=== PATIENT | female | born 1980 | race Caucasian/White ===

== ENCOUNTER → 2019-12-25 10:40 | Outpatient (CLI) | payer OTHER, SELFPAY ==
[2019-12-25 11:47] LABS: Add Manual Diff / Slide Review NO; Basophils Absolute Auto 0 /uL (0-100); Basophils Percent Auto 0.7 % (0-2); Eosinophils Absolute Auto 0 /uL (0-450); Eosinophils Percent Auto 0.5 % (2-4); Hematocrit 34.7 % (36-46); Hemoglobin 10.8 g/dL (12.0-16.0); Lymphocytes Absolute Auto 1500 /uL (1100-4500); Lymphocytes Percent Auto 36.9 % (25-40); Mean Corpuscular Hemoglobin 22.7 PG (26-34); Mean Corpuscular Volume 73.2 fL (80-100); Monocytes Absolute Auto 300 /uL (0-900); Monocytes Percent Auto 8.4 % (3-14); Neutrophils Absolute Auto 2200 /uL (1500-7000); Neutrophils Percent Auto 53.5 % (50-75); Platelet Count 347 X10^3/uL (150-400); Red Blood Cell Count 4.74 X10^6/uL (4.0-5.2); Red Cell Distribution Width 17.4 % (11.6-14.8)
[2019-12-25 12:53] LABS: TSH w/ Reflex to FT4 1.21 uIU/mL (0.47-4.68)
[2019-12-25 13:17] LABS: Free T4, Direct Thyroxine 0.86 ng/dL (0.78-2.19)
== END ==
PROVIDERS: PCP Family Medicine; Referring Provider Obstetrics & Gynecology; Visit Provider Obstetrics & Gynecology
DX: N93.9 Abnormal uterine and vaginal bleeding, unspecified (principal)
CPT/HCPCS: 36415; 84439; 84443; 85025

== ENCOUNTER → 2021-10-29 11:59 | Outpatient (CLI) | payer OTHER, SELFPAY ==
[2021-10-29 12:27] LABS: COVID19 -Nasal RAPID Negative (Negative)
== END ==
PROVIDERS: PCP Student in an Organized Health Care Education/Training Program; Visit Provider Obstetrics & Gynecology
DX: Z20.822 Contact with and (suspected) exposure to COVID-19 (principal); Z01.812 Encounter for preprocedural laboratory examination
CPT/HCPCS: 87635

== ENCOUNTER 2021-10-30 10:05 | Day surgery (SDC) | payer OTHER, SELFPAY ==
[2021-10-27 08:48] VITALS: BMI 30.7
[2021-10-30 10:49] VITALS: BMI 30.7
[2021-10-30 11:03] VITALS: BP 110/81; PULSE 16; RESP 18; TEMP 37.1; O2SAT 97
[2021-10-30] MEDS: LACTATED RINGERS 1,000 ML 100 ML IV (11:06)
--- NOTE | 2021-10-30 11:40 | PM.PREOP ---
Pre-operative Note COVID-19 COVID-19 status: Negative Result date/Date tested (Pos, Neg/Pending): 10/29/21 Criteria for continued procedure: Non-surgical alternatives not available or appropriate per current SOC Interval Note History & Physical reviewed/Exam performed by Physician: Yes Changes to H&P: No
--- NOTE | 2021-10-30 12:06 | SUR.OPER ---
Lithotomy on padded OR bed, head on pillow, arms secured on padded arm boards at <90 degrees abduction. Legs secured in padded yellow fins stirrups.
[2021-10-30 13:07] VITALS: BP 105/64; PULSE 70; RESP 16; TEMP 36.3; O2SAT 100
[2021-10-30 13:12] VITALS: BP 112/70; PULSE 75; RESP 15; O2SAT 100
[2021-10-30 13:17] VITALS: BP 101/62; PULSE 77; RESP 16; TEMP 36.4; O2SAT 100
[2021-10-30] MEDS: ACETAMINOPHEN 325 MG TABLET 975 MG PO (13:42)
[2021-10-30 13:45] VITALS: BP 103/57; PULSE 67; RESP 16; O2SAT 100
[2021-10-30 13:55] VITALS: BP 110/55; PULSE 55; RESP 16; TEMP 36.7; O2SAT 100
--- NOTE | 2021-10-30 19:59 | PM.OP.1 ---
Operative Date/Time/Diagnoses Date of procedure: 10/30/21 Time of procedure: 19:59 Pre-op diagnosis: menorrhagia Post-op diagnosis: same Procedure & Clinicians Procedure: diagnostic hysteroscopy, Novasure endometrial ablation Same procedure as scheduled: Yes Indications: menorrhagia Surgeon: Jocelyn Michael Click Yes if Unassisted: Yes Anesthesia Type: MAC +/- Operative Notes Findings: Anteflexed but otherwise normal uterus. Normal vulva, vagina and cervix. Specimen(s): none sent Estimated Blood Loss (mL): 5 Procedure in detail: After informed consent was obtained and a test was negative, the patient was taken to the operating room and prepped and draped in the usual sterile fashion including straight catheterization. A speculum was inserted into the vagina and the cervix visualized and grasped with a single toothed tenaculum. The uterus was notably anteflexed with reduced mobility on exam, consistent with prior CS. Hegar dilators were used to dilate the cervix to 8mm with gentle traction at an anterior angle and traction on the tenaculum, and the Novasure uterine sound was used to measure the endometrial cavity was measured and found to be 5.5cm. The Novasure device was initially difficult to insert. Diagnostic hysteroscopy was performed to confirm uterine morphology was appropriate for the Novasure device, with no abnormalities noted. The Novasure could then be inserted through the cervix, and Novasure endometrial ablation performed. The cavity assessment was passed, and ablation time was 102 seconds. The Novasure device was removed and the tenaculum removed with spontaneous hemostasis noted. The patient tolerated the procedure well and was taken to the PACU in stable condition. cavity length: 5.5cm cavity width: 4.5cm P: 136W T: 1 minute 42 seconds IV fluids: 700ccs LR Complications: none Post-operative Condition: stable Disposition: PACU Plan for aftercare: Routine postoperative care.
== END 2021-10-30 14:05 | disposition home or self-care (01) ==
PROVIDERS: PCP Student in an Organized Health Care Education/Training Program; Referring Provider Obstetrics & Gynecology; Visit Provider Obstetrics & Gynecology
PROC: 0U5B8ZZ Destruction of Endometrium, Via Natural or Artificial Opening Endoscopic (ICD-10-PCS; CPT 58563; principal; 2021-10-30 11:45)
DX: N92.0 Excessive and frequent menstruation with regular cycle (principal)
CPT/HCPCS: 58353; 81025; J1100; J1885; J2250; J2405; J2704; J3010